=== PATIENT | female | born 2000 | race Caucasian/White ===

== ENCOUNTER 2020-06-28 13:20 | Emergency (ER) | payer MEDICAID ==
[~2020-06-28] VITALS: Ht 157.5 cm; Wt 54.5 kg
[2020-06-28 13:45] VITALS: BP 139/92
== END 2020-06-28 16:15 | disposition home or self-care (01) ==
LOC: ER 13:21
DX: S93.492A Sprain of other ligament of left ankle, initial encounter (principal); F17.200 Nicotine dependence, unspecified, uncomplicated; W22.8XXA Striking against or struck by other objects, initial encounter; Y93.89 Activity, other specified; Y92.89 Other specified places as the place of occurrence of the external cause; Y99.8 Other external cause status; Z90.49 Acquired absence of other specified parts of digestive tract
CPT/HCPCS: 73610; 99283

== ENCOUNTER → 2021-02-17 | Emergency (ER) | payer MEDICAID ==
[~2021-02-17] VITALS: Ht 157.5 cm; Wt 1.0 kg
[~2021-02-17] MED LIST: ESCI-8 PO; ESCITALOPRAM OXALATE 5 MG TABLET PO SCH; HYDR-3686 PO; PROP10TA10 PO; hydrOXYzine 25 MG tablet PO PRN; normal saline 1000ML IV soln IV ONE; ondansetron/PF 4mg/2ml inj IV ONE; propranolol 10mg tablet PO PRN
--- NOTE | 2021-02-17 17:45 | NUR ---
CALLED POISON CONTROL, SPOKE TO [facility], PT SAYS SHE TOOK ATARAX 25 MG X 20, LEXAPRO 10MG X15, PROPANOLOL 20 MG X 50, INGESTION TIME 1300, BEGAN VOMITING 1645 NEEDS 12 LEAD EKG, AND TELE MONITORING, 12 HRS LEXAPRO: WATCH QRS INTERVAL, IF WIDENING, GLUCOGON 5MG BOLUS WITH ANTIEMETIC AND REPLACE k, mg, PROPANOLOL: SHOULD BE HYPOTENSIVE OR HAVE BRADYCARDIC WATCH QRS INTERVAL ATARAX: SHOULD BE TACHYCARDIC, AND DILATED PUPILS NEEDS LINE SERVICER, SZ PADS, AND TO BE GIVEN BENZOS FOR SZ LABS ASPIRIN, THYLENOL ETOH, LFT, CBC AND CHEM
[2021-02-17 18:07] LABS: BASOPHILS % (AUTO) 0.3 % (0-1); EOSINOPHILS # (AUTO) 0.3 X10'3 (0-0.9); EOSINOPHILS % (AUTO) 2.3 % (0-6); HEMATOCRIT 44.7 % (35.0-45.0); LYMPHOCYTES # (AUTO) 1.3 X10'3 (1.1-4.8); LYMPHOCYTES % (AUTO) 10.7 % (21-51); MEAN CORPUSCULAR HEMOGLOBIN 30.6 PG (27.0-31.0); MEAN CORPUSCULAR HGB CONC 33.5 g/dL (33.0-36.5); MEAN CORPUSCULAR VOLUME 91.4 FL (78-98); MEAN PLATELET VOLUME 8.6 FL (7.4-10.4); MONOCYTES # (AUTO) 0.8 X10'3 (0-0.9); MONOCYTES % (AUTO) 6.7 % (2-12); NEUTROPHILS # (AUTO) 9.8 X10'3 (1.8-7.7); PLATELET COUNT 281 X10'3 (140-440); RED BLOOD COUNT 4.89 X10'6 (4.20-5.60); RED CELL DISTRIBUTION WIDTH 12.9 % (11.5-14.5); WHITE BLOOD COUNT 12.2 X10'3 (4.5-11.0)
[2021-02-17 18:16] LABS: ALANINE AMINOTRANSFERASE 24 U/L (12-78); ALBUMIN 3.9 G/DL (3.4-5.0); ALBUMIN/GLOBULIN RATIO 1.1 (1.1-1.5); ALKALINE PHOSPHATASE 55 IU/L (46-116); ANION GAP 7 (8-16); ASPARTATE AMINO TRANSFERASE 14 U/L (10-37); BILIRUBIN,TOTAL 0.4 MG/DL (0.1-1.0); BLOOD UREA NITROGEN 13 MG/DL (7-18); BUN/CREATININE RATIO 12.1 (6.6-38.0); CALCIUM 8.3 MG/DL (8.5-10.1); CHLORIDE 105 MMOL/L (99-107); CREATININE 1.07 MG/DL (0.40-0.90); ETHANOL < 0.010 GM/DL (0.0-0.010); GLUCOSE 120 MG/DL (70-104); POTASSIUM 4.6 MMOL/L (3.5-5.1); SODIUM 137 MMOL/L (135-145); TOTAL PROTEIN 7.4 G/DL (6.4-8.2); eGFR 65 ML/MIN
[2021-02-17 18:17] LABS: ACETAMINOPHEN < 2.0 UG/ML (10-30)
--- NOTE | 2021-02-17 19:07 | NUR ---
pt wants to go to the [facility]. Checks person to assure there is no contraban on pt. There was nothing found on person. UA cup given.
[2021-02-17 19:43] LABS: CLARITY,URINE CLEAR (Clear); COLOR,URINE YELLOW (Yellow); GLUCOSE, URINE NEGATIVE (Neg); KETONES,URINE NEGATIVE (Neg); LEUKOCYTE ESTERASE ,URINE NEGATIVE (Neg); NITRITES, URINE NEGATIVE (Neg); OCCULT BLOOD,URINE NEGATIVE (Neg); PH,URINE 5.5 (4.8-8.0); PROTEIN,URINE NEGATIVE (Neg); UROBILINOGEN,URINE 0.2 E.U/dL (0.2-1.0)
[2021-02-17 19:49] LABS: UA COLLECTION TYPE NON-SPECIFIED
[2021-02-17 20:14] LABS: URINE AMPHETAMINE SCREEN NEGATIVE (Neg); URINE BARBITUATE SCREEN NEGATIVE (Neg); URINE BENZODIAZEPINES SCREEN NEGATIVE (Neg); URINE CANNABINOID SCREEN NEGATIVE (Neg); URINE COCAINE SCREEN NEGATIVE (Neg); URINE METHADONE SCREEN NEGATIVE (Neg); URINE OPIATE SCREEN NEGATIVE (Neg); URINE PHENCYCLIDINE SCREEN NEGATIVE (Neg)
--- NOTE | 2021-02-17 22:00 | NUR ---
The patient moved to bed 23 in the ER overflow. He reportedly had taken an overdose of prescription medications and has been medically cleared. He stated that he took the overdose on impulse. He also stated that he has been feeling suicidal for the past 3 weeks. He denies a/v hallucinations. He was very cooperative with staff. He had his mother were made aware that he would be seen by [facility] in the morning and that currently he is on a 1799. The patient's mother took his phone home with her.
--- NOTE | 2021-02-17 22:10 | NUR ---
Patient's mother: Cheyenne Edgar [phone]
--- NOTE | 2021-02-17 22:40 | NUR ---
Per poison control the patient has been cleared
--- NOTE | 2021-02-17 23:33 | NUR ---
The patient appears to be sleeping
--- NOTE | 2021-02-18 01:20 | NUR ---
The patient appears to be sleeping
--- NOTE | 2021-02-18 03:20 | NUR ---
The patient currently appears to be sleeping
--- NOTE | 2021-02-18 04:19 | NUR ---
The patient appears to be sleeping
[2021-02-18 05:50] VITALS: BP 113/73
--- NOTE | 2021-02-18 07:00 | NUR ---
Pt. asleep in bed in supine position. Resp 16, normal rate and rhythm noted. Pt. in no apparent distress.
--- NOTE | 2021-02-18 08:30 | NUR ---
1:1 interview done at bedside. Pt. denies SI/HI, A/V hallucinations. Pt. reports that his overdose was not a suicide attempt, but that he only wanted to, "end the pain". Pt. denies any previous suicide attempts or psychiatric hospitalizations. Pt. ate about 15% of his meal.
--- NOTE | 2021-02-18 09:00 | NUR ---
Pt. asleep in bed lying on right side. Normal R&R of respirations noted. Pt. in no apparent distress. Pt.'s mother sitting at bedside.
== END | disposition home or self-care (01) ==
LOC: ER 17:36
DX: T43.592A Poisoning by other antipsychotics and neuroleptics, intentional self-harm, initial encounter (principal); T44.7X2A Poisoning by beta-adrenoreceptor antagonists, intentional self-harm, initial encounter; F32.9 Major depressive disorder, single episode, unspecified; F41.9 Anxiety disorder, unspecified; Z90.89 Acquired absence of other organs; Z72.89 Other problems related to lifestyle; Z79.899 Other long term (current) drug therapy; X83.8XXA Intentional self-harm by other specified means, initial encounter; Y93.89 Activity, other specified; Y92.89 Other specified places as the place of occurrence of the external cause; Y99.8 Other external cause status
CPT/HCPCS: 36415; 80053; 80305; 80320; 80329; 81003; 85025; 93005; 96374; 99291; J2405; J7030